=== PATIENT | male | born 1960 | race Caucasian/White ===

== ENCOUNTER 2018-07-23 05:50 | Day surgery (SDC) | payer OTHER ==
[~2018-07-23 05:50] MED LIST: ASA81 MG PO; CLONAZEPAM1 M1 PO; GABAPENTIN800 MG PO; OMEPRAZOLE20 MG PO; PROZAC20 MG PO; SYNTHROID50 MCG PO; VERAPAMIL ER240 MG PO
[2018-07-23] MEDS ORDERED: COLACE100 MG PO (09:44)
[2018-07-23] MEDS ORDERED: PERCOCET 5-3251 EACH PO (09:44)
== END 2018-07-23 12:35 | disposition home or self-care (01) ==
LOC: CIR.AMB 05:50
DX: A63.0 Anogenital (venereal) warts (principal)